=== PATIENT | female | born 1950 | race Caucasian/White ===

== ENCOUNTER 2023-07-25 16:06 | Emergency (ER) | payer MEDICARE ==
[2023-07-25] VITALS (8 sets, daily range): BP systolic 108–131; BP diastolic 58–83; PULSE 68–84; RESP 22; TEMP 98.1; O2SAT 93–97
[~2023-07-25] VITALS: Ht 160 cm; Wt 113.4 kg
[2023-07-25] MEDS: DILAUDID IV STA (20:21)
[2023-07-25] MEDS: ZOFRAN IV STA (20:21)
[2023-07-25] MEDS ORDERED: ZOFRAN ONE (21:20)
[2023-07-25] MEDS ORDERED: DILAUDID ONE (21:20)
== END 2023-07-25 21:32 | disposition short-term general hospital (02) ==
LOC: ER 16:06 → EDBD 16:06 → ER 21:32
DX: S73.004A Unspecified dislocation of right hip, initial encounter (principal); I10 Essential (primary) hypertension; X58.XXXA Exposure to other specified factors, initial encounter; Y93.89 Activity, other specified; Y92.091 Bathroom in other non-institutional residence as the place of occurrence of the external cause; Y99.8 Other external cause status
CPT/HCPCS: 99285; 96374; 96375; 73502; J1170; J2405

== ENCOUNTER 2024-02-10 15:35 | Emergency (ER) | payer MEDICARE, OTHER ==
[~2024-02-10] VITALS: Ht 157.5 cm; Wt 112.0 kg
[2024-02-10] VITALS (10 sets, daily range): BP systolic 109–140; BP diastolic 63–93; PULSE 71–121; RESP 18; TEMP 97.6; O2SAT 91–96
[2024-02-10 16:02] LABS: BASOPHIL % 0.5 % (0.1-1.2); EOSINOPHIL # 0.1 10^3/uL (0.0-0.2); HEMATOCRIT(ML) 40.1 % (36.0-46.0); HEMOGLOBIN 12.7 g/dL (12.0-15.0); LYMPHOCYTES # 0.66 10^3/uL1 (1.0-4.8); LYMPHOCYTES % 16.5 % (24.0-44.0); MEAN CORP HGB 33.6 pg (26-34); MEAN CORP HGB CONCENTRATION 31.7 g/dL (33-36.5); MEAN CORP VOLUME 106.1 fL (78-100); MONOCYTES # 0.3 10^3/uL (0.3-0.8); NEUTROPHIL # 2.9 10^3/uL (1.8-7.7); RED BLOOD CELL 3.78 10^6/uL (4.00-5.20); RED CELL DISTRIBUTION WIDTH 14.5 % (11.5-14.5)
[2024-02-10 16:19] LABS: INR 1.4; PROTHROMBIN PROTIME 14.6 SEC (9.7-11.6)
[2024-02-10 16:30] LABS: ALBUMIN(ML) 3.6 g/dL (3.4-5.0); ALBUMIN/GLOBULIN RATIO 0.972; ANION GAP 11.6; BUN/CREATININE RATIO 13.39 (10.0-20.0); CALCIUM 9.2 mg/dL (8.4-10.5); CREATININE SERUM 1.12 mg/dL (0.59-1.40); POTASSIUM 4.6 mmol/L (3.6-5.2)
[2024-02-10] MEDS ORDERED: DIPRIVAN IV ONE (17:50)
[2024-02-10] MEDS ORDERED: SUBLIMAZE 100MCG/2ML ONE (18:03)
[2024-02-10] MEDS: SUBLIMAZE 100MCG/2ML IV STA (18:10)
== END 2024-02-10 20:30 | disposition short-term general hospital (02) ==
LOC: EDBD 15:35 → ER 15:35
DX: T84.020A Dislocation of internal right hip prosthesis, initial encounter (principal); I10 Essential (primary) hypertension; E66.01 Morbid (severe) obesity due to excess calories; Z79.899 Other long term (current) drug therapy; W19.XXXA Unspecified fall, initial encounter; Y93.89 Activity, other specified; Y92.89 Other specified places as the place of occurrence of the external cause; Y99.8 Other external cause status
CPT/HCPCS: 99285; 96374; 73502 ×2; 73630; 80053; 85025; 82948; 36415; 85610; 85730; J2704; J3010